=== PATIENT | female | born 1980 | race Caucasian/White ===

== ENCOUNTER → 2023-11-22 00:49 | Outpatient (CLI) | payer OTHER, SELFPAY ==
--- NOTE | 2023-11-22 | DI.MAMMO_ITS ---
Exam(s) MAMMO SCREENING EXAM: MAMMO SCREENING CLINICAL HISTORY: SCREENING MAMMO FOR BREAST CANCER Z12.31 TECHNIQUE: Mammograms were interpreted according to the usual protocol including computer analysis w [facility] CAD system, tomosynthesis and C-view imaging. COMPARISON: No exams were available for comparison. Baseline examination FINDINGS: The breasts are composed of scattered fibroglandular densities, Breast Density category B. No suspicious masses or suspicious microcalcifications are seen. No skin thickening or abnormal axillary lymph nodes are seen. IMPRESSION: BI-RADS Category 1, Negative mammogram Yearly screening mammography is recommended. Breast Density - Category B, scattered fibroglandular densities. A negative radiographic report should not delay biopsy if a dominant or clinically suspicious mass is present. Up to ten percent of cancers are not identified on mammography. A negative report may reinforce clinical impression. Adenosis and dense breasts may obscure an underlying neoplasm. False positive reports average 6 to 10%. Patient will receive a letter notifying them of these results.
== END ==
PROVIDERS: PCP Nurse Practitioner Family; Visit Provider Nurse Practitioner Family
DX: Z12.31 Encounter for screening mammogram for malignant neoplasm of breast (principal)
CPT/HCPCS: 77063; 77067

== ENCOUNTER 2023-11-27 05:04 | Outpatient (CLI) | payer OTHER, SELFPAY ==
[2023-11-27 16:46] LABS: Abs Immature Grans 0.02 10^3/uL (0.0-0.06); Absolute Basophil Count 0.05 10^3/uL (0.0-0.2); Absolute Eosinophil Count 0.08 10^3/uL (0.0-0.7); Absolute Lymphocyte Count 2.48 10^3/uL (1.2-3.4); Absolute Monocyte Count 0.62 10^3/uL (0.1-0.8); Absolute Neutrophil Count 6.42 10^3/uL (1.2-6.7); Basophils % 0.5; Eosinophils % 0.8; HCT 41.1 % (36.0-46.0); HGB 13.5 g/dL (11.2-15.7); Immature Grans % 0.2; Lymphocytes % 25.6; MCH 30.4 pg (27.0-33.0); MCHC 32.8 % (32.0-36.0); MCV 93 fL (80-95); MPV 9.5 fL (8.0-11.0); Monocytes % 6.4; Neutrophils % 66.5; Platelet Count 325 10^3/uL (130-400); RBC 4.44 10^6/uL (3.93-5.22); RDW 12.7 % (11.7-14.6); RDW-SD 43.8 fL; WBC 9.67 10^3/uL (4.4-10.8)
[2023-11-27 16:59] LABS: Hemoglobin A1C 5.3 % (<5.7)
[2023-11-27 17:53] LABS: ALT 23 U/L (14-59); Alkaline Phosphatase 71 U/L (46-116); Anion Gap 11.9 mmol/L (3-11); BUN 11 mg/dL (7-18); Bilirubin, Total 0.3 mg/dL (0.2-1.0); CO2 26.1 mmol/L (21.0-32.0); CREATININE 0.8 mg/dL (0.55-1.02); Calcium 8.8 mg/dL (8.5-10.1); Calculated LDL 123 mg/dL (<100); Chloride 104 mmol/L (98-107); Cholesterol 198 mg/dL (<200); Estimated GFR 94.87 (mL/min/1.73m2); Glucose 81 mg/dL (74-106); HDL Cholesterol 50 mg/dL (40-60); Potassium 3.9 mmol/L (3.5-5.1); Sodium 142 mmol/L (136-145); TSH (W/Ref FT4) 1.54 uIU/mL (0.36-3.74); Total Protein 7.1 g/dL (6.4-8.2); Triglyceride 128 mg/dL (<150); Vitamin B12 267 pg/mL (193-986)
[2023-11-27 18:24] LABS: AST 13 U/L (15-37)
[2023-11-27 18:55] LABS: Vitamin D 25 Total 26.7 ng/mL (30-100)
== END 2023-11-27 05:05 | disposition home or self-care (01) ==
LOC: LBO 05:05
PROVIDERS: PCP Nurse Practitioner Family; Visit Provider Nurse Practitioner Family
DX: Z00.00 Encounter for general adult medical examination without abnormal findings (principal); D51.3 Other dietary vitamin B12 deficiency anemia; E55.9 Vitamin D deficiency, unspecified; I10 Essential (primary) hypertension; E78.5 Hyperlipidemia, unspecified
CPT/HCPCS: 36415; 80053; 80061; 82306; 82607; 83036; 84443; 85025

== ENCOUNTER 2023-12-20 13:30 | Outpatient (REF) | payer OTHER, SELFPAY ==
--- NOTE | 2023-12-20 08:31 | PAPFT_PTH ---
PATIENT: Marisabel Knowles LOC: [facility] U#:[id number] AGE/SX: 42/F ROOM: RE12/20/[address]: Cleo Urrutia : 1980 BED: DIS: 12/20/2023 SPEC #: [id number] RECD: 12/20/23 17:53 STATUS: MATTI RETy #: [id number] EMILIANO: 12/20/23 08:[address]: Cleo Urrutia DEPT: [facility] Cytology RECD BY: Che Reaves Tissues: 1 - CX/ENDOCX FOR PAP SMEARS Procedures: PAP THIN PREP/[facility] Screening Comments: [id number] (CHLAMYDIA/GC)
[2023-12-22 15:22] LABS: Chlamydia Result Negative (Negative); GC Result Negative (Negative)
== END 2023-12-20 13:31 | disposition home or self-care (01) ==
LOC: LBN 13:30
PROVIDERS: PCP Nurse Practitioner Family; Visit Provider Nurse Practitioner Family
DX: Z12.4 Encounter for screening for malignant neoplasm of cervix (principal); N77.1 Vaginitis, vulvitis and vulvovaginitis in diseases classified elsewhere; Z59.01 Sheltered homelessness
CPT/HCPCS: 87491; 87591; 88142; 87624

== ENCOUNTER 2024-05-14 03:06 | Outpatient (CLI) | payer OTHER, SELFPAY ==
[2024-05-14 10:17] LABS: ESR 10 mm/hr (0-20)
[2024-05-14 10:30] LABS: Hemoglobin A1C 5.2 % (<5.7)
[2024-05-14 11:00] LABS: Iron 89 ug/dL (50-170); Total Iron Binding Capacity 324 ug/dL (250-450); Transferrin Sat 27 % (15-50)
[2024-05-14 11:21] LABS: Ferritin 35 ng/mL (8-252); Folate 14.5 ng/mL (8.6-20.0)
[2024-05-14 11:23] LABS: Vitamin D 25 Total 22.7 ng/mL (30-100)
[2024-05-14 11:31] LABS: C-Reactive Protein 0.81 mg/dL (<or=0.5)
[2024-05-14 20:47] LABS: Progesterone 0.4 ng/mL (See Table)
[2024-05-15 11:13] LABS: T4 8.4 ug/dL (4.7-13.3); TSH 1.14 uIU/Ml (0.36-3.74)
[2024-05-15 11:31] LABS: FREE T4 1.19 ng/dL (0.76-1.46)
[2024-05-15 13:54] LABS: ANA Interpretation Positive (Negative)
[2024-05-15 18:03] LABS: T3, Total 161 ng/dL (97-169)
[2024-05-17 17:04] LABS: Estradiol, Mass Spectrometry 34 pg/mL; Estrone 61 pg/mL
[2024-05-19 08:35] LABS: Ascorbic Acid (Vit C), Plasma 0.5 mg/dL (0.4 - 2.0)
[2024-05-19 16:35] LABS: Testosterone, Total 33 ng/dL (8-60)
[2024-05-19 20:32] LABS: Iodine, S 58 ng/mL (40-92)
[2024-05-21 21:53] LABS: AM Cortisol 14 mcg/dL (5-25); Cortisol, Free 0.555 mcg/dL
[2024-05-22 12:07] LABS: Dehydroepiandrosterone (DHEA) 5.5 ng/mL (<8.0)
[2024-05-22 14:02] LABS: Pregnenolone 126 ng/dL (33-248)
== END 2024-05-14 03:07 | disposition home or self-care (01) ==
PROVIDERS: PCP Nurse Practitioner Family; Visit Provider Acupuncturist
DX: Z00.01 Encounter for general adult medical examination with abnormal findings (principal); R63.5 Abnormal weight gain; N94.3 Premenstrual tension syndrome; F41.1 Generalized anxiety disorder; F34.1 Dysthymic disorder; E53.8 Deficiency of other specified B group vitamins; E61.8 Deficiency of other specified nutrient elements; R51.9 Headache, unspecified; M25.562 Pain in left knee; M25.552 Pain in left hip; L30.9 Dermatitis, unspecified; F50.2 Bulimia nervosa; R63.8 Other symptoms and signs concerning food and fluid intake; R61 Generalized hyperhidrosis; E87.8 Other disorders of electrolyte and fluid balance, not elsewhere classified; E63.9 Nutritional deficiency, unspecified
CPT/HCPCS: 36415; 82306; 82530; 82533; 84403; 85652; 82180; 82190; 82626; 82670; 82679; 82728; 82746; 83036; 83540; 83550; 84140; 84144; 84436; 84439; 84443; 84480; 84481; 86038; 86140

== ENCOUNTER 2024-06-25 09:45 | Outpatient (REF) | payer OTHER, SELFPAY ==
--- OUTSIDE RECORDS SUMMARY | 2024-06-25 09:48 | XMS_ITS | Referral Summary ---
Author Organization [facility] Address [address] [place] [address] Care Team Providers Care Product Development Scientist Name Role Phone Unavailable Primary Care Provider Unavailabl e Encounters Date Type Department Care Team Description 05/15/2024 Lab Requisition [facility] Pathology & [facility] [address] [place] [address] Outr Resulting Lab, Provider 05/14/2024 Lab Requisition [facility] [address] [place] [address] Outr Resulting Lab, Provider from Last 3 Months Social History Tobacco Use Types Packs/Day Years Used Date Smoking Tobacco: Never Assessed Sex and Gender Information Value Date Recorded Sex Assigned at Not on file Gender Identity Not on file Sexual Orientation Not on file Plan of Treatment Not on file Procedures Procedure Name Priority Date/Time Associated Diagnosis Comments T3 FREE Routine 05/14/2024 9:50 EDT T3, TOTAL Routine 05/14/2024 9:50 EDT HOLD SST Today 05/14/2024 9:50 EDT PROGESTERONE Today 05/14/2024 9:50 EDT ANTI NUCLEAR AB (ELOINA), IFA Today 05/14/2024 9:50 EDT from Last 3 Months Results * HOLD SST (05/14/2024 9:50 EDT) Hold Hold 05/14/2024 22:15 EDT [facility] Blood VENOUS BLOOD / Unknown 05/14/2024 9:50 EDT 05/14/2024 21:10 EDT Provider Outr Resulting Lab LAB INFO SER VICE AND SUPPORT & PHONE RESULT [facility] [address] [place] [address] * PROGESTERONE (05/14/2024 9:50 EDT) Progesterone 0.4 See Table ng/mL 05/14/2024 20:42 EDT [facility] Comment: Female Reference Ranges: PHYSIOLOGICAL STATUS ?REFERENCE RANGE ? Pre-Pubertal: ? <= 0.2 ng/mL Menstruating: (Non-) Follicular Phase: ? <= 1.4 ng/mL Luteal Phase: ? 3.3 - 25.6 ng/mL Mid-luteal Phase: ? 4.4 - 28.0 ng/mL Postmenopausal: ? <= 0.7 ng/mL : -------- First Trimester: ?11.2 - 90.0 ng/mL Second Trimester: ? 25.6 - 89.4 ng/mL Third Trimester: ?48.4 - 422.5ng/mL For ectopic , consult a pathologist. Blood VENOUS BLOOD / Unknown 05/14/2024 9:50 EDT 05/14/2024 20:04 EDT Provider Outr Resulting Lab CHEMISTRY & BLOOD GAS ORDERABLES Performing Organization Address City/[facility]/ZIP Co de Phone Number [facility] [address], [place] [address] * (ABNORMAL) ANTI NUCLEAR AB (ELOINA), IFA (05/14/2024 9:50 EDT) [facility] ELOINA Interpretation Positive(A) Negative 05/15/2024 13:49 EDT [facility] ELOINA Titer and Pattern 1 1:80 Dense Fine Speckled 05/15/2024 13:49 EDT [facility] Blood VENOUS BLOOD / Unknown 05/14/2024 9:50 EDT 05/14/2024 20:04 EDT Narrative [facility] - 05/15/2024 13:49 EDT Results were obtained with the [employer] NOVA Lite HEp-2 ELOINA Kit by indirect immunofluorescence. Provider Outr Resulting Lab IMMUNOLOGY A ND SEROLOGY ORDERABLES Performing Organization Address City/[facility]/ZIP Co de Phone Number [facility] [address] [place] [address] * T3 FREE (05/14/2024 9:50 EDT) [facility] T3, Free 5.0 2.8 - 5.3 pg/mL 05/15/2024 17:44 EDT [facility] Blood VENOUS BLOOD / Unknown 05/14/2024 9:50 EDT 05/15/2024 17:01 EDT Provider Outr Resulting Lab CHEMISTRY & BLOOD GAS ORDERABLES Performing Organization Address City/[facility]/ZIP Co de Phone Number [facility] [address], [place] [address] * T3, TOTAL (05/14/2024 9:50 EDT) [facility] T3, Total 161 97 - 169 ng/dL 05/15/2024 17:59 EDT [facility] Blood VENOUS BLOOD / Unknown 05/14/2024 9:50 EDT 05/15/2024 17:01 EDT Provider Outr Resulting Lab CHEMISTRY & BLOOD GAS ORDERABLES [facility] [address] [place] [address] from Last 3 Months
--- OUTSIDE RECORDS SUMMARY | 2024-06-25 09:48 | XMS_ITS | Encounter Summary ---
Author Organization [facility] Address [address] [place] [address] Care Team Providers Care Bulk Delivery Driver Name Role Phone Unavailable Primary Care Provider Unavailabl e Encounter Details Date Type Department Care Team (Late st Contact Info) Description 05/14/2024 Lab Requisition [facility] Pathology & Laboratory Medicine - [facility] [address], [place] [address] Outr Resulting Lab, Provider Social History Tobacco Use Types Packs/Day Years Used Date Smoking Tobacco: Never Assessed Sex and Gender Information Value Date Recorded Sex Assigned at Not on file Gender Identity Not on file Sexual Orientation Not on file documented as of this encounter Plan of Treatment Not on file documented as of this encounter Procedures Procedure Name Priority Date/Time Associated Diagnosis Comments HOLD SST Today 05/14/2024 9:50 EDT PROGESTERONE Today 05/14/2024 9:50 EDT ANTI NUCLEAR AB (ELOINA), IFA Today 05/14/2024 9:50 EDT documented in this encounter Results * HOLD SST (05/14/2024 9:50 EDT) Hold Hold 05/14/2024 22:15 EDT [facility] Blood VENOUS BLOOD / Unknown 05/14/2024 9:50 EDT 05/14/2024 21:10 EDT Provider Outr Resulting Lab LAB INFO SER VICE AND SUPPORT & PHONE RESULT [facility] [address] [place], [place] [address] * PROGESTERONE (05/14/2024 9:50 EDT) Progesterone 0.4 See Table ng/mL 05/14/2024 20:42 EDT [facility] Comment: Female Reference Ranges: [...] Resulting Lab CHEMISTRY & BLOOD GAS ORDERABLES [facility] [address] [place] [address] * (ABNORMAL) ANTI NUCLEAR AB (ELOINA), IFA (05/14/2024 9:50 EDT) ELOINA Interpretation Positive(A) Negative 05/15/2024 13:49 EDT [facility] ELOINA Titer and Pattern 1 1:80 Dense Fine Speckled 05/15/2024 13:49 EDT [facility] Blood VENOUS BLOOD / Unknown 05/14/2024 9:50 EDT 05/14/2024 20:04 EDT Narrative [facility] - 05/15/2024 13:49 EDT Results were obtained with the [employer] NOVA Lite HEp-2 ELOINA Kit by indirect immunofluorescence. Provider Outr Resulting Lab IMMUNOLOGY A ND SEROLOGY ORDERABLES [facility] [address] [place] [address] documented in this encounter Visit Diagnoses Not on filedocumented in this encounter
--- OUTSIDE RECORDS SUMMARY | 2024-06-25 09:48 | XMS_ITS | Encounter Summary ---
Author Organization [facility] Address [address] [place] [address] Care Team Providers Care Employee Training Specialist Name Role Phone Unavailable Primary Care Provider Unavailabl e Encounter Details Date Type Department Care Team (Late st Contact Info) Description 05/15/2024 Lab Requisition [facility] Pathology & Laboratory Medicine - [facility] [address] [place] [address] Outr Resulting Lab, Provider Social History Tobacco [...] EDT T3, TOTAL Routine 05/14/2024 9:50 EDT documented in this encounter Results * T3 FREE (05/14/2024 9:50 EDT) T3, Free 5.0 2.8 - 5.3 pg/mL 05/15/2024 17:44 EDT [facility] Blood VENOUS BLOOD / Unknown 05/14/2024 9:50 EDT 05/15/2024 17:01 EDT Provider Outr Resulting Lab CHEMISTRY & BLOOD GAS ORDERABLES [facility] [address] [place], [place] [address] * T3, TOTAL (05/14/2024 9:50 EDT) T3, Total 161 97 - 169 ng/dL 05/15/2024 17:59 EDT [facility] Blood VENOUS BLOOD / Unknown 05/14/2024 9:50 EDT 05/15/2024 17:01 EDT Provider Outr Resulting Lab CHEMISTRY & BLOOD GAS ORDERABLES [facility] [address] [place] [address] documented in this encounter Visit Diagnoses Not on filedocumented in this encounter
--- OUTSIDE RECORDS SUMMARY | 2024-06-25 09:48 | XMS_ITS | Clinical Summary ---
Author Organization [facility] Address [address] [place] [address] Care Team Providers Care Equipment Installation Professional Name Role Phone Unavailable Primary Care Provider Unavailabl e Encounters Date Type Department Care Team Description 05/15/2024 Lab Requisition [facility] Pathology & Laboratory [facility] [address] [place] [address] Outr Resulting Lab, Provider 05/14/2024 Lab Requisition [facility] Pathology & Laboratory [address] [address] Outr Resulting Lab, Provider from Last 3 Months Social History Tobacco Use Types Packs/Day Years Used Date Smoking Tobacco: Never Assessed Sex and Gender Information Value Date Recorded Sex Assigned at Not on file Gender Identity Not on file Sexual Orientation Not on file Plan of Treatment Health Maintenance Due Date Last Done Comments Hepatitis C Screen 1980 Hepatitis B Vaccine (1 of 3 - 19+ 3-dose series) 12/27 COVID-19 Vaccine (2022- season) 2023 Procedures Procedure Name Priority Date/Time Associated Diagnosis Comments T3 FREE Routine 05/14/2024 9:50 EDT T3, TOTAL Routine 05/14/2024 9:50 EDT HOLD SST Today 05/14/2024 9:50 EDT PROGESTERONE Today 05/14/2024 9:50 EDT ANTI NUCLEAR AB (ELOINA), IFA Today 05/14/2024 9:50 EDT from Last 3 Months Results * HOLD SST (05/14/2024 9:50 EDT) Hold Hold 05/14/2024 22:15 EDT [facility] Blood VENOUS BLOOD / Unknown 05/14/2024 9:50 EDT 05/14/2024 21:10 EDT Provider Outr Resulting Lab LAB INFO SER VICE AND SUPPORT & PHONE RESULT [facility] [address] [place] [address] * PROGESTERONE (05/14/2024 9:50 EDT) Progesterone 0.4 See Table ng/mL 05/14/2024 20:42 EDT [facility] Comment: Female Reference Ranges: PHYSIOLOGICAL [...] & BLOOD GAS ORDERABLES Performing Organization Address [facility]/ZIP Co de Phone Number [facility] [address] [place], [place] [address] * (ABNORMAL) ANTI NUCLEAR AB (ELOINA), IFA (05/14/2024 9:50 EDT) ELOINA Interpretation Positive(A) Negative 05/15/2024 13:49 EDT [facility] ELOINA Titer and Pattern 1 1:80 Dense Fine Speckled 05/15/2024 13:49 EDT [facility] Blood VENOUS BLOOD / Unknown 05/14/2024 9:50 EDT 05/14/2024 20:04 EDT Narrative [facility] - 05/15/2024 13:49 EDT Results were obtained with the [employer] NOVA Lite HEp-2 ELOINA Kit by indirect immunofluorescence. Provider Outr Resulting Lab IMMUNOLOGY A ND SEROLOGY ORDERABLES Performing Organization Address [facility] Co de Phone Number [facility] [address] [place] [id number] * T3 FREE (05/14/2024 9:50 EDT) T3, Free 5.0 2.8 - 5.3 pg/mL 05/15/2024 17:44 EDT [facility] Blood VENOUS BLOOD / Unknown 05/14/2024 9:50 EDT 05/15/2024 17:01 EDT Provider Outr Resulting Lab CHEMISTRY & BLOOD GAS ORDERABLES Performing Organization Address [facility]/ZIP Co de Phone Number [facility] [address] [place], [place] [address] * T3, TOTAL (05/14/2024 9:50 EDT) T3, Total 161 97 - 169 ng/dL 05/15/2024 17:59 EDT [facility] Blood VENOUS BLOOD / Unknown 05/14/2024 9:50 EDT 05/15/2024 17:01 EDT Provider Outr Resulting Lab CHEMISTRY & BLOOD GAS ORDERABLES [facility] [address] [place], [place] [id number] from Last 3 Months
--- OUTSIDE RECORDS SUMMARY | 2024-06-25 09:48 | XMS_ITS | Encounter Summary ---
Author Organization [facility] Address [address] [place] [address] Care Team Providers Care Heel Cementer Name Role Phone Unavailable Primary Care Provider Unavailabl e Encounter Details Date Type Department Care Team (Late st Contact Info) Description 12/23/2023 Lab Requisition [facility] Pathology & Laboratory Medicine - [facility] [address] [place] [address] Cleo Urrutia APRN [address] [place] [address] Encounter for screening for malignant neoplasm of cervix Social History Tobacco Use Types Packs/Day Years Used Date Smoking Tobacco: Never Assessed Sex and Gender Information Value Date Recorded Sex Assigned at Not on file Gender Identity Not on file Sexual Orientation Not on file documented as of this encounter Plan of Treatment Not on file documented as of this encounter Procedures Procedure Name Priority Date/Time Associated Diagnosis Comments PAP TEST Today 12/20/2023 8:31 EDT Encounter for screening for malignant neoplasm of cervix documented in this encounter Results * PAP TEST (12/20/2023 8:31 EDT) Specimens A. Cervix and/or Endocervix , ThinPrep Imaging System with Manual Evaluation 2023 8:58 EDT [facility] Specimen Adequacy Satisfactory for Evaluation - transformation zone component absent 2023 8:58 EDT [facility] General Categorization Negative for intraepithelial lesion or malignancy 2023 8:58 EDT [facility] Descriptive Diagnosis Shift in petrona present suggestive of bacterial vaginosis. Trichomonas vaginalis present. 2023 8:58 EDT [facility] Attestation . 2023 8:58 EDT [facility] at 0858 Clinical History SEE BELOW 12/27/19 8:58 EDT [facility] Performing Lab [facility] 2023 8:58 EDT [facility] Scanned Images 2023 8:58 EDT [facility] Pap Test CERVIX UTERI STRUCTURE / Unknown 12/20/2023 8:31 EDT 12/23/2023 11:51 EDT Cleo Urrutia APRN PATHOLOGY ORDERABLES [facility] [address] [place] [address] documented in this encounter Visit Diagnoses Diagnosis Encounter for screening for malignant neoplasm of cervix Screening for malignant neoplasm of the cervix documented in this encounter
--- OUTSIDE RECORDS SUMMARY | 2024-06-25 09:48 | XMS_ITS | Encounter Summary ---
Author Organization [facility] Address [address] [place] [address] Care Team Providers Care Replenishment Buyer Name Role Phone Unavailable Primary Care Provider Unavailabl e Encounter Details Date Type Department Care Team (Late st Contact Info) Description 12/20/2023 Lab Requisition [facility] Pathology & Laboratory Medicine - [facility] [address] [place], [place] [address] Outr Resulting Lab, Provider Social History Tobacco [...] Procedure Name Priority Date/Time Associated Diagnosis Comments CHLAMYDIA/N. GONORRHOEAE AMPLIFIED NUCLEIC ACID, THINPREP Routine 12/20/2023 8:31 EDT documented in this encounter Results * CHLAMYDIA/N. GONORRHOEAE AMPLIFIED RNA, THINPREP (12/20/2023 8:31 EDT) Neisseria gonorrhoeae Result Negative Negative 12/22/2023 15:17 EDT [facility] Chlamydia trachomatis Result Negative Negative 12/22/2023 15:17 EDT [facility] Pap Test CERVIX UTERI STRUCTURE / Unknown 12/20/2023 8:31 EDT 12/22/2023 7:58 EDT Provider Outr Resulting Lab MICROBIOLOGY - GENERAL ORDERABLES [facility] [address] [place], [place] [address] documented in this encounter Visit Diagnoses Not on filedocumented in this encounter
[2024-06-25 17:31] LABS: Abs Immature Grans 0.03 10^3/uL (0.0-0.06); Absolute Basophil Count 0.05 10^3/uL (0.0-0.2); Absolute Eosinophil Count 0.08 10^3/uL (0.0-0.7); Absolute Lymphocyte Count 1.27 10^3/uL (1.2-3.4); Absolute Monocyte Count 0.72 10^3/uL (0.1-0.8); Absolute Neutrophil Count 4.22 10^3/uL (1.2-6.7); Basophils % 0.8 %; Eosinophils % 1.3 %; HCT 42.5 % (36.0-46.0); HGB 13.8 g/dL (11.2-15.7); Immature Grans % 0.5 %; Lymphocytes % 19.9 %; MCH 29.9 pg (27.0-33.0); MCHC 32.5 % (32.0-36.0); MCV 92 fL (80-95); Monocytes % 11.3 %; Neutrophils % 66.2 %; RBC 4.61 10^6/uL (3.93-5.22); RDW 12.9 % (11.7-14.6); RDW-SD 44.1 fL; WBC 6.37 10^3/uL (4.4-10.8)
[2024-06-28 22:01] LABS: Anaplasma phagocytophilum Negative (Negative); B. miyamotoi PCR Negative (Negative); Babesia divergens/MO-1 Negative (Negative); Babesia duncani Negative (Negative); Babesia microti Negative (Negative); Ehrlichia chaffeensis Negative (Negative); Ehrlichia ewingii/canis Negative (Negative); Ehrlichia muris eauclairensis Negative (Negative)
[2024-06-29 11:15] LABS: Lyme Ab w Rflx to Lyme Confirm Negative (Negative)
== END 2024-06-25 09:46 | disposition home or self-care (01) ==
LOC: LBN 09:45
PROVIDERS: PCP Nurse Practitioner Family; Visit Provider Family Medicine
DX: L28.2 Other prurigo (principal)
CPT/HCPCS: 87798; 85025; 86618